=== PATIENT | male | born 1950 | race American Indian/Alaskan Native ===

== ENCOUNTER 2016-09-24 16:46 | Emergency (ER) | payer MEDICARE ==
[2016-09-24] MEDS ORDERED: Morphine 4 mg/ml ISec IM STA (17:23)
--- NOTE | 2016-09-24 17:23 | ED PDOC ---
Arrival/HPI - General Chief Complaint: Back Pain Time Seen by Provider: 09/24/16 17:05 Historian: Patient - History of Present Illness Narrative History of Present Illness (Text): 09/24/16 17:20 This 66 yo male presents to this ED c/o left flank pain x 10 days. Patient stated pain radiates to left buttock. Patient denies fever, sob, cp, rash, weakness, paresthesias, weakness, urinary symptoms, saddle anesthesias, urinary retention, trauma, or testicular pain. Time/Duration: > week Quality: Aching Context: Home Past Medical History - Provider Review Nursing Documentation Reviewed: Yes - Infectious Disease Hx of Infectious Diseases: None - Cardiac Hx Cardiac Disorders: No - Pulmonary Hx Respiratory Disorders: No - Neurological Hx Neurological Disorder: No - HEENT Hx HEENT Disorder: Yes Other/Comment: hard of hearing - Renal Hx Renal Disorder: No - Endocrine/Metabolic Hx Endocrine Disorders: No - Hematological/Oncological Hx Blood Disorders: No - Integumentary Hx Dermatological Disorder: No - Musculoskeletal/Rheumatological Hx Musculoskeletal Disorders: No - Gastrointestinal Hx Gastrointestinal Disorders: No - Genitourinary/Gynecological Hx Genitourinary Disorders: No - Psychiatric Hx Psychophysiologic Disorder: No Hx Substance Use: No - Surgical History Hx Orthopedic Surgery: Yes (Leg surgery) - Anesthesia Hx Anesthesia: Yes Hx Anesthesia Reactions: No Hx Malignant Hyperthermia: No Family/Social History - Physician Review Nursing Documentation Reviewed: Yes Family/Social History: No Known Family HX Smoking Status: Heavy Smoker > 10 Cigarettes Daily Hx Alcohol Use: Yes Hx Substance Use: No Allergies/Home Meds Allergies/Adverse Reactions: Allergies No Known Allergies Allergy (Verified 04/17/16 20:40) Review of Systems - Review of Systems Constitutional: Normal. absent: Fatigue, Weight Change, Fevers, Night Sweats Eyes: Normal ENT: Normal Respiratory: Normal Cardiovascular: Normal Gastrointestinal: Normal Genitourinary Male: Normal Musculoskeletal: Back Pain Skin: Normal Neurological: Normal Endocrine: Normal Hemo/Lymphatic: Normal Psychiatric: Normal Physical Exam Vital Signs Temp Pulse Resp BP Pulse Ox 09/24/16 19:42 85 16 128/76 96 09/24/16 17:01 98.2 F 90 22 153/99 H 99 Temperature: Afebrile Blood Pressure: Hypertensive Pulse: Regular Respiratory Rate: Normal Appearance: Positive for: Well-Appearing, Non-Toxic, Comfortable Pain Distress: None Mental Status: Positive for: Alert and Oriented X 3 - Systems Exam Head: Present: Atraumatic, Normocephalic Pupils: Present: PERRL Extroacular Muscles: Present: EOMI Conjunctiva: Present: Normal Mouth: Present: Moist Mucous Membranes Neck: Present: Normal Range of Motion Respiratory/Chest: Present: Clear to Auscultation, Good Air Exchange. No: Respiratory Distress, Accessory Muscle Use Cardiovascular: Present: Regular Rate and Rhythm, Normal S1, S2. No: Murmurs Abdomen: Present: Normal Bowel Sounds. No: Tenderness, Distention, Peritoneal Signs Back: Present: Normal Inspection, Paraspinal Tenderness ((+) mild left paravertebral tenderness. No vertebral step off. No vertebral point tenderness. No skin rash). No: CVA Tenderness, Midline Tenderness Upper Extremity: Present: Normal Inspection, Normal ROM, NORMAL PULSES, Neurovascularly Intact, Capillary Refill < 2s. No: Cyanosis, Edema Lower Extremity: Present: Normal Inspection, NORMAL PULSES, Normal ROM, Capillary Refill < 2 s. No: Edema, CALF TENDERNESS Neurological: Present: GCS=15, CN II-XII Intact, Speech Normal Skin: Present: Warm, Dry, Normal Color. No: Rashes Psychiatric: Present: Alert, Oriented x 3, Normal Insight, Normal Concentration Medical Decision Making ED Course and Treatment: 09/24/16 17:31 This 66 yo male smoker, who presents to this ED c/o left flank pain, left lower back pain x 10 days. Denies trauma. Physical exam was unremarkable, except for tenderness left paravertebral area. Patient denies recent imaging for his abdomen. Patient denies urinary symptoms, or rash. I ordered CT scan of abdomen to evaluate for flank pain r/o renal stone, and also to evaluate for caliber of aorta. CT L spine was ordered to evaluate for l-spine Fx. Labs and UA were ordered. 09/24/16 19:17 Patient is sleeping comfortably. I woke him up. He said back pain has improved. He still has not given us urine. I reviewed labs result, and cats scan test with patient, which show stenosis, and adrenal mass. he understood result. 09/24/16 20:12 Patient stated pain has improved and he wishes to be d/c home 09/24/16 20:22 Patient had a normal gait. He was able to get up from the the stretcher and walk with normal gait, when he was getting urine specimen. No neuro focal deficits. Re-evaluation Time: 20:19 Reassessment Condition: Re-examined, Improved - Lab Interpretations Lab Results: 09/24/16 17:52 09/24/16 17:52 Lab Results 09/24/16 19:40: Urine Color Yellow, Urine Appearance Clear, Urine pH 6.0, Ur Specific [place] 1.015, Urine Protein Negative, Urine Glucose (UA) Negative, Urine Ketones Trace H, Urine Blood Negative, Urine Nitrate Negative, Urine Bilirubin Negative, Urine Urobilinogen 0.2, Ur Leukocyte Esterase Negative 09/24/16 17:52: WBC 4.4 L, RBC 4.15, Hgb 13.5 L, Hct 37.7 L, MCV 90.8, MCH 32.5 , MCHC 35.8, RDW 12.5, Plt Count 275, MPV 9.5, Neutrophils % (Manual) 45 L, Band Neutrophils % 0, Lymphocytes % (Manual) 50 H, Atypical Lymphs % 2 H, Monocytes % (Manual) 2, Eosinophils % (Manual) 1, Sodium 145, Potassium 3.9, Chloride 106, Carbon Dioxide 26, Anion Gap 17, BUN 10, Creatinine 1.2, Est GFR ( Amer) > 60, Est GFR (Non-Af Amer) > 60, Random Glucose 96, Calcium 10.0 , Total Bilirubin 0.6, AST 39, ALT 32, Alkaline Phosphatase 64, Total Protein 7.9, Albumin 4.4, Globulin 3.6, Albumin/Globulin Ratio 1.2 I have reviewed the lab results: Yes Interpretation: No clinic. lab abnormalty - RAD Interpretation Narrative RAD Interpretations (Text): 09/24/16 19:11 Accession No. : [id number] Patient Name / ID : OSCAR PEREZ / [id number] Exam Date : 09/24/2016 18:09:35 ( Approved ) Study Comment : Sex / Age : M / 66Y Creator : Albaro Davalos MD Dictator : Albaro Davalos MD Automotive Design Drafter : Core Analysis Operator : Albaro Davalos MD Approver2 : Report Date : 09/24/2016 18:52:53 My Comment : PROCEDURE: CT Lumbar Spine without contrast HISTORY: Left hip, low back Pain. No history of recent/ related trauma provided COMPARISON: None. TECHNIQUE: Axial computed tomography images were obtained of the lumbar spine without the use of intravenous contrast. Coronal and sagittal reformatted images were created and reviewed. Radiation dose: Total exam DLP = 839.86 mGy-cm. This CT exam was performed using one or more of the following dose reduction techniques: Automated exposure control, adjustment of the mA and/or kV according to patient size, and/or use of iterative reconstruction technique. FINDINGS: VERTEBRAE: Unremarkable. No fracture. Normal alignment. DISCS/SPINAL CANAL/NEURAL FORAMINA: L1-2: Unremarkable. L2-3: Mild canal stenosis without focal herniated disc. L3-4: Mild canal stenosis primarily related to annular bulge and hypertrophy of ligamentum flavum. L4-5: Mild canal stenosis primarily resulting from bulging annulus fibrosus and hypertrophy of ligamentum flavum and osseous elements. L5-S1: Unremarkable. PARASPINAL SOFT TISSUES: Unremarkable. OTHER FINDINGS: None. IMPRESSION: Multilevel, mild spinal stenosis. No acute findings. 09/24/16 19:13 Accession No. : [id number] Patient Name / ID : OSCAR PEREZ / [id number] Exam Date : 09/24/2016 18:06:12 ( Approved ) Study Comment : Sex / Age : M / 66Y Creator : Albaro Davalos MD Dictator : Albaro Davalos MD Automotive Design Drafter : Core Analysis Operator : Albaro Davalos MD Approver2 : Report Date : 09/24/2016 18:57:53 My Comment : PROCEDURE: CT Abdomen and Pelvis without intravenous contrast HISTORY: left flank pain and left hip pain. COMPARISON: September 24, 2016. CT lumbar spine TECHNIQUE: Unenhanced study. Neither oral nor intravenous contrast administered. Radiation dose: Total exam DLP = mGy-cm. This CT exam was performed using one or more of the following dose reduction techniques: Automated exposure control, adjustment of the mA and/or kV according to patient size, and/or use of iterative reconstruction technique. FINDINGS: LOWER THORAX: Unremarkable. LIVER: Unremarkable. No gross lesion or ductal dilatation. GALLBLADDER AND BILE DUCTS: Unremarkable. PANCREAS: Unremarkable. No gross lesion or ductal dilatation. SPLEEN: Unremarkable. ADRENALS: Subcentimeter mass likely right adrenal adenoma. Unremarkable left adrenal gland. KIDNEYS AND URETERS: Unremarkable. No hydronephrosis. No solid mass. VASCULATURE: Unremarkable. No aortic aneurysm. BOWEL: Constipation without fecal impaction or obstruction. APPENDIX: Unremarkable. Normal appendix. PERITONEUM: Unremarkable. No free fluid. No free air. LYMPH NODES: Unremarkable. No enlarged lymph nodes. BLADDER: Unremarkable. REPRODUCTIVE: Unremarkable. BONES: No acute fracture. . Mild degenerative changes both hips. Findings referrable to the lumbar spine better appreciated on dedicated lumbar spine CT. OTHER FINDINGS: None. IMPRESSION: No acute findings related to/accounting for the clinical presentation. Additional benign and/or incidental findings described above. Radiology Orders: 09/24/16 17:23 LUMBAR SPINE W/O CONTRAST [CT] Stat 09/24/16 17:25 ABD & PELVIS W/O PO OR IV CONT [CT] Stat - Medication Orders Current Medication Orders: Discontinued Medications Sodium Chloride (Sodium Chloride 0.9%) 500 mls @ 999 mls/hr IV .Q31M STA Stop: 09/24/16 17:56 Last Admin: 09/24/16 18:01 Dose: 999 MLS/HR eMAR Start Stop Document 09/24/16 18:01 SS (Rec: 09/24/16 18:03 SS [email or web address] Intravenous Solution Start Date 09/24/16 Start Time 18:03 End Date 09/24/16 End time 18:33 Total Infusion Time 30 Ketorolac Tromethamine (Toradol) 15 mg IVP STAT STA Stop: 09/24/16 17:27 Last Admin: 09/24/16 17:59 Dose: 15 MG IVP Administration Document 09/24/16 17:59 SS (Rec: 09/24/16 18:01 SS [email or web address] Charges for Administration # of IVP Administrations 1 Oxycodone/Acetaminophen (Percocet 5/325 Mg Tab) 1 tab PO STAT STA Stop: 09/24/16 19:49 Last Admin: 09/24/16 20:05 Dose: 1 TAB Oxycodone/Acetaminophen (Percocet 5/325 Mg Tab) 1 tab PO STAT STA Stop: 09/24/16 20:13 Disposition/Present on Arrival - Present on Arrival Any Indicators Present on Arrival: No History of DVT/PE: No History of Uncontrolled Diabetes: No Urinary Catheter: No History of Decub. Ulcer: No History Surgical Site Infection Following: None - Disposition Have Diagnosis and Disposition been Completed?: Yes Diagnosis: Lower back pain, Adrenal adenoma, Lumbar canal stenosis Disposition: HOME/ ROUTINE Disposition Time: 20:20 Patient Plan: Discharge Condition: GOOD Discharge Instructions (ExitCare): Back Pain (ED) Additional Instructions: Call private doctor for follow up visit and revaluation in 1-2 days. Take medication as instructed. Return to emergency if symptoms worsen, or new symptoms develop. Call orthopedist for revaluation in 1-[address] OR OPERATE MACHINERY WHILE TAKING PERCOCET. PERCOCET COULD MAKE YOU FEEL DROWSY AND UNSTEADY Prescriptions: Naproxen 500 mg PO BID PRN #10 tab PRN Reason: Pain, Severe (8-10) Famotidine [Pepcid] 40 mg PO DAILY #7 tablet oxyCODONE/Acetaminophen [Percocet 5/325 mg Tab] 1 ea PO TID PRN #9 tab PRN Reason: Pain, Severe (8-10) Referrals: Diya Valiente MD [Primary Care Provider] - Follow up with primary Gaurav Sterling DO [Staff Provider] - Follow up with primary
[2016-09-24] MEDS ORDERED: Sodium Chloride 0.9% 500 ML IV STA (17:26)
[2016-09-24 18:05] LABS: HEMATOCRIT 37.7 % (42.0-52.0); MEAN CELL VOLUME 90.8 fL (80.0-105.0); MEAN CORPUSCULAR HEMOGLOBIN 32.5 pg (25.0-35.0); MEAN CORPUSCULAR HGB CONC 35.8 g/dl (31.0-37.0); MEAN PLATELET VOLUME 9.5 fl (7.0-11.0); PLATELET COUNT 275 10^3/uL (120.0-450.0); RED CELL DISTRIBUTION WIDTH 12.5 % (11.5-14.5); WHITE BLOOD COUNT 4.4 10^3/ul (4.5-11.0)
[2016-09-24 18:07] LABS: ADD MANUAL DIFF? YES
[2016-09-24 18:47] LABS: ATYPICAL LYMPHOCYTE 2 % (0.0-0.0); BAND 0 % (0-2); NEUTROPHIL 45 % (50.0-70.0)
[2016-09-24 18:48] LABS: EOSINOPHIL 1 % (0.0-3.0)
--- NOTE | 2016-09-24 18:54 | CT ---
PROCEDURE: CT Lumbar Spine without contrast HISTORY: Left hip, low back Pain. No history of recent/ related trauma provided COMPARISON: None. TECHNIQUE: Axial computed tomography images were obtained of the lumbar spine without the use of intravenous contrast. Coronal and sagittal reformatted images were created and reviewed. Radiation dose: Total exam DLP = 839.86 mGy-cm. This CT exam was performed using one or more of the following dose reduction techniques: Automated exposure control, adjustment of the mA and/or kV according to patient size, and/or use of iterative reconstruction technique. FINDINGS: VERTEBRAE: Unremarkable. No fracture. Normal alignment. DISCS/SPINAL CANAL/NEURAL FORAMINA: L1-2: Unremarkable. L2-3: Mild canal stenosis without focal herniated disc. L3-4: Mild canal stenosis primarily related to annular bulge and hypertrophy of ligamentum flavum. L4-5: Mild canal stenosis primarily resulting from bulging annulus fibrosus and hypertrophy of ligamentum flavum and osseous elements. L5-S1: Unremarkable. PARASPINAL SOFT TISSUES: Unremarkable. OTHER FINDINGS: None. IMPRESSION: Multilevel, mild spinal stenosis. No acute findings.
[2016-09-24 18:55] LABS: ALB/GLOB RATIO 1.2 (1.1-1.8); ALKALINE PHOSPHATASE 64 U/L (38-133); ALT/SGPT 32 U/L (7-56); AST/SGOT 39 U/L (15-59); BILIRUBIN,TOTAL 0.6 mg/dL (0.2-1.3); BLOOD UREA NITROGEN 10 mg/dL (7-21); CARBON DIOXIDE 26 mmol/L (21-33); CHLORIDE 106 mmol/L (98-107); GFR AFRICAN-AMERICAN > 60; GLUCOSE,RANDOM 96 mg/dL (70-110); POTASSIUM 3.9 mmol/L (3.6-5.0); SODIUM 145 mmol/L (132-148); TOTAL PROTEIN 7.9 g/dL (5.8-8.3)
--- NOTE | 2016-09-24 18:59 | CT ---
PROCEDURE: CT Abdomen and Pelvis without intravenous contrast HISTORY: left flank pain and left hip pain. COMPARISON: September 24, 2016. CT lumbar spine TECHNIQUE: Unenhanced study. Neither oral nor intravenous contrast administered. Radiation dose: Total exam DLP = mGy-cm. This CT exam was performed using one or more of the following dose reduction techniques: Automated exposure control, adjustment of the mA and/or kV according to patient size, and/or use of iterative reconstruction technique. FINDINGS: LOWER THORAX: Unremarkable. LIVER: Unremarkable. No gross lesion or ductal dilatation. GALLBLADDER AND BILE DUCTS: Unremarkable. PANCREAS: Unremarkable. No gross lesion or ductal dilatation. SPLEEN: Unremarkable. ADRENALS: Subcentimeter mass likely right adrenal adenoma. Unremarkable left adrenal gland. KIDNEYS AND URETERS: Unremarkable. No hydronephrosis. No solid mass. VASCULATURE: Unremarkable. No aortic aneurysm. BOWEL: Constipation without fecal impaction or obstruction. APPENDIX: Unremarkable. Normal appendix. PERITONEUM: Unremarkable. No free fluid. No free air. LYMPH NODES: Unremarkable. No enlarged lymph nodes. BLADDER: Unremarkable. REPRODUCTIVE: Unremarkable. BONES: No acute fracture. . Mild degenerative changes both hips. Findings referrable to the lumbar spine better appreciated on dedicated lumbar spine CT. OTHER FINDINGS: None. IMPRESSION: No acute findings related to/accounting for the clinical presentation. Additional benign and/or incidental findings described above.
[2016-09-24 19:43] VITALS: PULSE 85; RESP 16
[2016-09-24] MEDS ORDERED: Oxycodone/Acetaminophen 5/325 mg Tab PO STA ×2 (19:48→20:12)
[2016-09-24 20:03] LABS: URINE BILIRUBIN NEGATIVE (NEGATIVE); URINE BLOOD NEGATIVE (NEGATIVE); URINE GLUCOSE (UA) NEGATIVE (NEGATIVE); URINE KETONE TRACE mg/dL (NEGATIVE); URINE LEUKOCYTE ESTERASE NEGATIVE Leu/uL (NEGATIVE); URINE PROTEIN NEGATIVE mg/dL (<30 mg/dL); URINE UROBILINOGEN 0.2 E.U./dL (<1 E.U./dL)
[2016-09-24 20:09] LABS: URINE APPEARANCE CLEAR (CLEAR); URINE COLOR YELLOW (YELLOW)
[2016-09-24 20:25] VITALS: BP 120/90; TEMP 98.3; O2SAT 97
== END 2016-09-24 20:44 | disposition home or self-care (01) ==
LOC: ED 16:46
DX: M48.06 Spinal stenosis, lumbar region (principal); D35.00 Benign neoplasm of unspecified adrenal gland; M54.5 Low back pain
CPT/HCPCS: 72131; 74176; 80053; 81003; 85025; 87086; 96374; 99284; J1885; J7040